=== PATIENT | female | born 1995 ===

== ENCOUNTER → 2018-06-27 | Emergency (ER) | payer BC ==
[~2018-06-27] VITALS: Ht 152.4 cm; Wt 45.4 kg
[~2018-06-27] MED LIST: CONEX TABLET1 EACH PO; FLONASE ALLERG9.9 ML NASAL; KETO10TA2 PO; MECLIZINE HCL25 MG PO
== END | disposition home or self-care (01) ==
LOC: ER 21:20
DX: J32.8 Other chronic sinusitis (principal); R42 Dizziness and giddiness